=== PATIENT | male | born 1995 | race Caucasian/White ===

== ENCOUNTER → 2017-07-24 | Outpatient (CLI) | payer OTHER | LOC: CIMAGING 09:57 | PROVIDERS: ATTEND Family Medicine | DX: M25.862 Other specified joint disorders, left knee (principal); M25.462 Effusion, left knee; Z87.828 Personal history of other (healed) physical injury and trauma; Z87.81 Personal history of (healed) traumatic fracture | CPT/HCPCS: 73562-PO ==